=== PATIENT | female | born 1970 | race African-American/Black ===

== ENCOUNTER 2023-03-26 10:21 | Emergency (ER) | payer OTHER ==
[2023-03-26] MEDS ORDERED: Ketorolac Tromethamine 30 MG/ML VIAL ONE (12:42)
[2023-03-26 12:57] LABS: SARS-CoV-2 NAA Rapid Test DETECTED (NotDetected)
== END 2023-03-26 13:41 | disposition home or self-care (01) ==
LOC: ERS 10:21
DX: U07.1 COVID-19 (principal)
CPT/HCPCS: 0240U; 87081; 87430; 96372; 99283; J1885